=== PATIENT | female | born 1970 | race African-American/Black ===

== ENCOUNTER 2018-07-12 12:42 | Emergency (ER) | payer SELFPAY ==
[~2018-07-12] VITALS: Ht 162.6 cm; Wt 50.0 kg
[2018-07-12 12:45] VITALS: BP 124/74
== END 2018-07-12 13:21 | disposition left against medical advice (07) ==
LOC: ER 13:21
DX: M25.561 Pain in right knee (principal); F14.10 Cocaine abuse, uncomplicated; Z53.21 Procedure and treatment not carried out due to patient leaving prior to being seen by health care provider